=== PATIENT | male | born 1985 | race Two or more races ===

== ENCOUNTER 2017-12-25 12:32 | Emergency (ER) | payer OTHER ==
[~2017-12-25] VITALS: Ht 188 cm; Wt 120.2 kg
[~2017-12-25 12:32] MED LIST: NORVASC5 MG PO; ZOLOFT20 MG/ML PO
== END 2017-12-25 16:05 | disposition home or self-care (01) ==
LOC: ER 12:32
DX: R07.89 Other chest pain (principal); F41.8 Other specified anxiety disorders

== ENCOUNTER → 2024-03-26 | Emergency (ER) | payer OTHER ==
[~2024-03-26] VITALS: Ht 190.5 cm; Wt 140.6 kg
[~2024-03-26] MED LIST changes: +KETOROLAC TROMETHAMINE 30 MG VIAL IM STA; +KETOROLAC TROMETHAMINE 30 MG VIAL ONE
== END | disposition home or self-care (01) ==
LOC: ER 18:50
DX: T14.90XA Injury, unspecified, initial encounter (principal); V49.88XA Car occupant (driver) (passenger) injured in other specified transport accidents, initial encounter; Y93.89 Activity, other specified; Y92.89 Other specified places as the place of occurrence of the external cause; Y99.8 Other external cause status